=== PATIENT | female | born 1935 | race Caucasian/White ===

== ENCOUNTER 2021-09-07 11:00 | Inpatient (IN) | payer MEDICARE, BC ==
[2021-09-07] MEDS ORDERED: Lorazepam 2 MG/ML VIAL ONE ×2 (11:38→12:48)
[2021-09-07 12:22] LABS: ALT (SGPT) 9 U/L (8-55); AST (SGOT) 13 U/L (5-34); Albumin 3.5 g/dL (3.4-4.8); Alkaline Phosphatase 89 U/L (40-110); Anion Gap 15 mmol/L (10-20); BUN (Urea Nitrogen) 20 mg/dL (9.8-20.1); Bilirubin, Total 0.3 mg/dL (0.2-1.2); Calc. Creatinine Clearance 0 mL/min (70-130); Calcium 8.7 mg/dL (7.8-10.44); Carbon Dioxide 23 mmol/L (23-31); Chloride 108 mmol/L (98-107); Globulin 2.9 g/dL (2.4-3.5); Glucose 92 mg/dL (83-110); Protein, Total 6.4 g/dL (5.8-8.1); Sodium 141 mmol/L (136-145)
[2021-09-07 14:32] LABS: #Basophils 0.1 10x3/uL (0.0-0.2); #Eosinphils 0.2 10x3/uL (0.0-0.5); #Monocytes 0.5 10x3/uL (0.0-1.1); #Neutrophils 4.8 10x3/uL (1.5-8.4); %Basophils 0.7 % (0.0-2.0); %Eosinophils 2.3 % (0.0-6.0); %Lymphocytes 19.2 % (18.0-47.0); %Monocytes 7.7 % (0.0-10.0); %Neutrophils 69.8 % (40.0-75.0); Hemoglobin 10.4 g/dL (12.0-15.5); Mean Corpuscular HGB CONC 30.9 g/dL (32.0-36.0); Mean Corpuscular Hemoglobin 24.6 pg (27.0-33.0); Mean Corpuscular Volume 79.7 fl (81.6-98.3); Mean Platelet Volume 10.2 fl (7.4-10.4); Platelet Count 358 10x3/uL (150-450); RBC Distribution Width 16.4 % (11.5-14.5); Red Blood Cell (RBC) Count 4.23 10x6/uL (3.90-5.03); White Blood Cell (WBC) Count 6.9 10x3/uL (3.5-10.5)
[2021-09-07] MEDS ORDERED: Aspirin 325 MG TAB ONE (15:47)
[2021-09-07 17:37] VITALS: BMI 26.6
[2021-09-07] MEDS ORDERED: FLU VACC QS2021-22(65YR UP)/PF 240 MCG/0.7 ML SYRINGE IM ONE (18:30)
[2021-09-07 19:51] LABS: SARS-CoV-2 NAA Rapid Test Not Detected (NotDetected)
[2021-09-07] MEDS ORDERED: Ondansetron PF 4 MG/2 ML Vial IVP PRN (22:33)
[2021-09-07] MEDS ORDERED: Acetaminophen 325 MG TAB PO PRN (22:33)
[2021-09-07] MEDS ORDERED: Ondansetron ODT 4 MG TAB PO PRN (22:33)
[2021-09-07 23:32] LABS: Magnesium 2.1 mg/dL (1.6-2.6); Phosphorus 3.2 mg/dL (2.3-4.7)
[2021-09-08 05:15] LABS: #Eosinphils 0.3 10x3/uL (0.0-0.5); #Monocytes 0.7 10x3/uL (0.0-1.1); #Neutrophils 4.3 10x3/uL (1.5-8.4); %Basophils 0.6 % (0.0-2.0); %Eosinophils 4.2 % (0.0-6.0); %Lymphocytes 19.5 % (18.0-47.0); %Monocytes 10.3 % (0.0-10.0); %Neutrophils 65.1 % (40.0-75.0); Mean Corpuscular Hemoglobin 25.1 pg (27.0-33.0); Mean Corpuscular Volume 78.4 fl (81.6-98.3); Platelet Count 359 10x3/uL (150-450); RBC Distribution Width 16.2 % (11.5-14.5); Red Blood Cell (RBC) Count 4.39 10x6/uL (3.90-5.03); White Blood Cell (WBC) Count 6.6 10x3/uL (3.5-10.5)
[2021-09-08 05:33] LABS: ALT (SGPT) 8 U/L (8-55); AST (SGOT) 16 U/L (5-34); Albumin 3.5 g/dL (3.4-4.8); Alkaline Phosphatase 89 U/L (40-110); Anion Gap 12 mmol/L (10-20); BUN (Urea Nitrogen) 18 mg/dL (9.8-20.1); Bilirubin, Total 0.6 mg/dL (0.2-1.2); Calc. Creatinine Clearance 48 mL/min (70-130); Calcium 8.7 mg/dL (7.8-10.44); Carbon Dioxide 25 mmol/L (23-31); Cardiac Risk 6.4 (Less than 4.5); Chloride 107 mmol/L (98-107); Cholesterol 230 mg/dl (< 200 Desired); Globulin 2.8 g/dL (2.4-3.5); Glucose 97 mg/dL (83-110); HDL Cholesterol 36 mg/dL (>60 Neg Risk); Iron 44 ug/dL (50-170); Iron Binding Capacity, Total 323 mcg/dL (265-497); LDL Cholesterol, Calculated 165 mg/dL; Potassium 4.4 mmol/L (3.5-5.1); Protein, Total 6.3 g/dL (5.8-8.1); Sodium 140 mmol/L (136-145); Triglycerides 143 mg/dL (Less than 150)
[2021-09-08] MEDS: Enoxaparin Sodium 40 MG/0.4 ML SYRINGE SC SCH (07:25)
[2021-09-08] MEDS: Aspirin 81 mg Enteric Coated Tablet PO SCH (07:25)
[2021-09-08] MEDS: Nebivolol HCl 5 MG TAB PO SCH (07:25)
[2021-09-08 12:29] LABS: Amphetamine Not Detected (NotDetected); Barbiturates Screen Not Detected (NotDetected); Benzodiazepine Screen Not Detected (NotDetected); Cocaine Metabolite Screen Not Detected (NotDetected); Methadone Not Detected (NotDetected); Methamphetamine Not Detected (NotDetected); Opiate Screen Not Detected (NotDetected); Oxycodone Screen Not Detected (NotDetected); Phencyclidine (PCP) Not Detected (NotDetected); THC/Cannabinoid Screen Not Detected (NotDetected); Tricyclic Screen Not Detected (NotDetected)
[2021-09-08 12:58] LABS: Hemoglobin A1c 5.4 % (4.0-6.0)
[2021-09-08] MEDS ORDERED: Clopidogrel Bisulfate 75 MG TAB PO SCH (13:00)
[2021-09-09] MEDS: Nebivolol HCl 5 MG TAB PO SCH (08:25)
[2021-09-09] MEDS: Enoxaparin Sodium 40 MG/0.4 ML SYRINGE SC SCH (08:25)
[2021-09-09] MEDS: Aspirin 81 mg Enteric Coated Tablet PO SCH (08:26)
[2021-09-09] MEDS ORDERED: Clopidogrel Bisulfate 75 MG TAB PO SCH (09:00)
[2021-09-09] MEDS ORDERED: levETIRAcetam 500 MG TAB PO SCH ×2 (11:30→21:00)
[2021-09-09 15:43] VITALS: BP 170/82; TEMP 97.4
== END 2021-09-09 17:37 | disposition home health service (06) | DRG 66 ==
LOC: CSHERS 11:00 → CSHTELE 16:25 → INTOOBSV 16:25 → OBSVTOIN 09-08 20:49
PROVIDERS: ADMIT Internal Medicine; ATTEND Internal Medicine
DX: I63.9 Cerebral infarction, unspecified (principal); Z96.653 Presence of artificial knee joint, bilateral; Z20.822 Contact with and (suspected) exposure to COVID-19; D64.9 Anemia, unspecified; N18.9 Chronic kidney disease, unspecified; I12.9 Hypertensive chronic kidney disease with stage 1 through stage 4 chronic kidney disease, or unspecified chronic kidney disease; F41.9 Anxiety disorder, unspecified; G25.5 Other chorea; G25.3 Myoclonus; R56.9 Unspecified convulsions; Z90.710 Acquired absence of both cervix and uterus; Z88.5 Allergy status to narcotic agent; Z86.73 Personal history of transient ischemic attack (TIA), and cerebral infarction without residual deficits; Z88.8 Allergy status to other drugs, medicaments and biological substances; Z79.82 Long term (current) use of aspirin; Z79.899 Other long term (current) drug therapy
CPT/HCPCS: 36415; 70450; 70551; 80053; 80061; 80306; 83036; 83540; 83550; 83735; 84100; 84443; 85025; 85652; 93005; 93010; 93306; 93880; 96372; G0378; J1650; J2060; U0002

== ENCOUNTER 2021-09-21 11:36 | Emergency (ER) | payer MEDICARE, BC ==
[2021-09-21] MEDS ORDERED: Acetaminophen 500 MG TAB ONE (13:39)
[2021-09-21 17:04] LABS: #Eosinphils 0.2 10x3/uL (0.0-0.5); #Monocytes 0.5 10x3/uL (0.0-1.1); #Neutrophils 5.4 10x3/uL (1.5-8.4); %Basophils 0.4 % (0.0-2.0); %Eosinophils 2.2 % (0.0-6.0); %Lymphocytes 18.4 % (18.0-47.0); %Neutrophils 71.6 % (40.0-75.0); Mean Corpuscular Hemoglobin 25.2 pg (27.0-33.0); Mean Corpuscular Volume 78.7 fl (81.6-98.3); Mean Platelet Volume 10.6 fl (7.4-10.4); Platelet Count 394 10x3/uL (150-450); RBC Distribution Width 16.7 % (11.5-14.5); Red Blood Cell (RBC) Count 4.37 10x6/uL (3.90-5.03); White Blood Cell (WBC) Count 7.6 10x3/uL (3.5-10.5)
[2021-09-21 17:14] LABS: ALT (SGPT) 6 U/L (8-55); AST (SGOT) 17 U/L (5-34); Albumin 3.7 g/dL (3.4-4.8); Alkaline Phosphatase 93 U/L (40-110); Anion Gap 13 mmol/L (10-20); BUN (Urea Nitrogen) 21 mg/dL (9.8-20.1); Bilirubin, Total 0.3 mg/dL (0.2-1.2); Calc. Creatinine Clearance 0 mL/min (70-130); Calcium 8.8 mg/dL (7.8-10.44); Carbon Dioxide 26 mmol/L (23-31); Chloride 104 mmol/L (98-107); Globulin 2.9 g/dL (2.4-3.5); Glucose 94 mg/dL (83-110); Potassium 4.3 mmol/L (3.5-5.1); Protein, Total 6.6 g/dL (5.8-8.1); Sodium 139 mmol/L (136-145)
== END 2021-09-21 22:41 | disposition home or self-care (01) ==
LOC: CSHERS 11:36
DX: S51.811A Laceration without foreign body of right forearm, initial encounter (principal); S20.211A Contusion of right front wall of thorax, initial encounter; E66.9 Obesity, unspecified; Z86.73 Personal history of transient ischemic attack (TIA), and cerebral infarction without residual deficits; Z79.899 Other long term (current) drug therapy; W18.30XA Fall on same level, unspecified, initial encounter
CPT/HCPCS: 36415; 72170; 80053; 85025

== ENCOUNTER 2022-04-30 03:29 | Observation (INO) | payer MEDICARE, BC ==
[2022-04-30 04:19] LABS: ALT (SGPT) 6 U/L (8-55); AST (SGOT) 11 U/L (5-34); Albumin 3.8 g/dL (3.4-4.8); Alkaline Phosphatase 73 U/L (40-110); Anion Gap 14 mmol/L (10-20); BUN (Urea Nitrogen) 15 mg/dL (9.8-20.1); Bilirubin, Total 0.4 mg/dL (0.2-1.2); Calc. Creatinine Clearance 0 mL/min (70-130); Calcium 9.5 mg/dL (7.8-10.44); Carbon Dioxide 22 mmol/L (23-31); Chloride 107 mmol/L (98-107); Estimated GFR 60; Globulin 2.4 g/dL (2.4-3.5); Glucose 163 mg/dL (83-110); Lipase 21 U/L (8-78); Potassium 3.6 mmol/L (3.5-5.1); Protein, Total 6.2 g/dL (5.8-8.1); Sodium 139 mmol/L (136-145)
[2022-04-30] MEDS ORDERED: Ondansetron PF 4 MG/2 ML Vial ONE (04:23)
[2022-04-30 04:33] LABS: #Basophils 0.1 10x3/uL (0.0-0.2); #Eosinphils 0.4 10x3/uL (0.0-0.5); #Monocytes 0.5 10x3/uL (0.0-1.1); #Neutrophils 4.5 10x3/uL (1.5-8.4); %Basophils 0.8 % (0.0-2.0); %Eosinophils 5.6 % (0.0-6.0); %Lymphocytes 26.3 % (18.0-47.0); %Monocytes 6.7 % (0.0-10.0); %Neutrophils 60.3 % (40.0-75.0); Hemoglobin 11.1 g/dL (12.0-15.5); Mean Corpuscular HGB CONC 32.2 g/dL (32.0-36.0); Mean Corpuscular Hemoglobin 24.5 pg (27.0-33.0); Mean Corpuscular Volume 76.2 fl (81.6-98.3); Mean Platelet Volume 10.4 fl (7.4-10.4); Platelet Count 365 10x3/uL (150-450); RBC Distribution Width 16.4 % (11.5-14.5); Red Blood Cell (RBC) Count 4.53 10x6/uL (3.90-5.03); White Blood Cell (WBC) Count 7.5 10x3/uL (3.5-10.5)
[2022-04-30 04:39] LABS: PTT 25.9 sec (22.0-33.0); Prothrombin Time 10.4 sec (9.5-12.1)
[2022-04-30 04:41] LABS: Bilirubin Neg (Negative); Blood, Urine Negative (Negative); Clarity Slightly Cloudy (Clear); Glucose, Urine (Dipstick) Normal (Negative); Ketone, Urine Negative (Negative); Leukocyte Negative (Negative); Nitrite Negative (Negative); Protein, Urine (Dipstick) 15 mg/dl (Neg-Trace); Specific Gravity, Urine 1.025 (1.002-1.036); Urobilinogen Normal mg/dL (Less than 2)
[2022-04-30 05:13] LABS: SARS-CoV-2 NAA Rapid Test Not Detected (NotDetected)
[2022-04-30] MEDS ORDERED: Ondansetron PF 4 MG/2 ML Vial IVP PRN (06:03)
[2022-04-30] MEDS ORDERED: Acetaminophen 325 MG TAB PO PRN (06:03)
[2022-04-30] MEDS ORDERED: Senokot S 8.6-50 MG TAB PO PRN (06:03)
[2022-04-30] MEDS ORDERED: Calcium Carbonate 500 MG ChewTAB PO PRN (06:03)
[2022-04-30] MEDS ORDERED: Lactated Ringer's 500 ML IV SCH (06:15)
[2022-04-30] MEDS ORDERED: Aspirin 81 mg Enteric Coated Tablet ONE (07:41)
[2022-04-30] MEDS ORDERED: Enoxaparin Sodium 40 MG/0.4 ML SYRINGE ONE (07:41)
[2022-04-30] MEDS ORDERED: Aspirin 81 mg Enteric Coated Tablet PO SCH (09:00)
[2022-04-30] MEDS ORDERED: Nebivolol HCl 5 MG TAB PO SCH (09:00)
[2022-04-30] MEDS: Enoxaparin Sodium 40 MG/0.4 ML SYRINGE SC SCH (09:04)
[2022-04-30] MEDS ORDERED: Acetaminophen 325 MG TAB ONE (12:46)
[2022-04-30 17:06] VITALS: BMI 25.0
[2022-05-01 08:14] VITALS: BP 173/80; TEMP 97.7
[2022-05-01] MEDS ORDERED: Aspirin 81 mg Enteric Coated Tablet PO SCH (09:00)
[2022-05-01] MEDS ORDERED: Potassium Chloride 10 MEQ TAB PO SCH (09:00)
[2022-05-01] MEDS ORDERED: Nebivolol HCl 5 MG TAB PO SCH (09:00)
[2022-05-01] MEDS ORDERED: Loratadine 10 MG TAB PO SCH (09:00)
[2022-05-01] MEDS ORDERED: Clopidogrel Bisulfate 75 MG TAB PO SCH (09:00)
[2022-05-01] MEDS: Enoxaparin Sodium 40 MG/0.4 ML SYRINGE SC SCH ×2 (09:28→09:35)
[2022-05-02] MEDS ORDERED: Furosemide 20 MG TAB PO SCH (09:00)
== END 2022-05-01 10:30 | disposition home health service (06) ==
LOC: CSHERS 03:29 → INTOOBSV 05:51 → CSHERHOLD 05:51 → CSHTELE 07:00
PROVIDERS: ADMIT Student in an Organized Health Care Education/Training Program; ATTEND Family Medicine
DX: R55 Syncope and collapse (principal); I69.354 Hemiplegia and hemiparesis following cerebral infarction affecting left non-dominant side; I13.0 Hypertensive heart and chronic kidney disease with heart failure and stage 1 through stage 4 chronic kidney disease, or unspecified chronic kidney disease; I50.32 Chronic diastolic (congestive) heart failure; E86.0 Dehydration; Z20.822 Contact with and (suspected) exposure to COVID-19; Z66 Do not resuscitate; D50.9 Iron deficiency anemia, unspecified; N18.2 Chronic kidney disease, stage 2 (mild); M19.90 Unspecified osteoarthritis, unspecified site; Z96.653 Presence of artificial knee joint, bilateral; Z60.2 Problems related to living alone; E66.9 Obesity, unspecified; Z88.6 Allergy status to analgesic agent; Z88.8 Allergy status to other drugs, medicaments and biological substances; Z79.82 Long term (current) use of aspirin; Z79.899 Other long term (current) drug therapy; Z79.02 Long term (current) use of antithrombotics/antiplatelets; Z90.710 Acquired absence of both cervix and uterus; Z82.49 Family history of ischemic heart disease and other diseases of the circulatory system; Z90.89 Acquired absence of other organs
CPT/HCPCS: 51701; 71045; 80053; 81003; 83605; 83690; 83880; 84484 ×2; 85025; 85610; 85730; 93005; 93880; 96374; 97530; 99285; U0002; 36415; J1650; J2405; J7120

== ENCOUNTER 2022-05-12 01:07 | Emergency (ER) | payer MEDICARE, BC ==
[2022-05-12] MEDS ORDERED: Ondansetron ODT 4 MG TAB ONE (02:01)
== END 2022-05-12 02:15 | disposition home or self-care (01) ==
LOC: CSHERS 01:07
DX: R51.9 Headache, unspecified (principal); I10 Essential (primary) hypertension; E66.9 Obesity, unspecified; Z86.73 Personal history of transient ischemic attack (TIA), and cerebral infarction without residual deficits; Z79.899 Other long term (current) drug therapy
CPT/HCPCS: 70450; Q0162

== ENCOUNTER 2022-08-30 11:54 | Inpatient (IN) | payer MEDICARE, BC ==
[2022-08-30 12:56] LABS: #Eosinphils 0.2 10x3/uL (0.0-0.5); #Monocytes 0.6 10x3/uL (0.0-1.1); #Neutrophils 4.8 10x3/uL (1.5-8.4); %Basophils 0.5 % (0.0-2.0); %Eosinophils 2.4 % (0.0-6.0); %Lymphocytes 23.3 % (18.0-47.0); %Monocytes 8.7 % (0.0-10.0); %Neutrophils 64.8 % (40.0-75.0); Mean Corpuscular HGB CONC 31.8 g/dL (32.0-36.0); Mean Corpuscular Hemoglobin 23.3 pg (27.0-33.0); Mean Corpuscular Volume 73.3 fl (81.6-98.3); Mean Platelet Volume 10.4 fl (7.4-10.4); Platelet Count 413 10x3/uL (150-450); RBC Distribution Width 17.6 % (11.5-14.5); Red Blood Cell (RBC) Count 4.72 10x6/uL (3.90-5.03); White Blood Cell (WBC) Count 7.4 10x3/uL (3.5-10.5)
[2022-08-30 13:05] LABS: ALT (SGPT) 8 U/L (8-55); AST (SGOT) 11 U/L (5-34); Albumin 3.9 g/dL (3.4-4.8); Alkaline Phosphatase 76 U/L (40-110); Anion Gap 14 mmol/L (10-20); BUN (Urea Nitrogen) 23 mg/dL (9.8-20.1); Bilirubin, Total 0.6 mg/dL (0.2-1.2); Calc. Creatinine Clearance 0 mL/min (70-130); Calcium 9.1 mg/dL (7.8-10.44); Carbon Dioxide 23 mmol/L (23-31); Chloride 106 mmol/L (98-107); Estimated GFR 56; Globulin 2.4 g/dL (2.4-3.5); Glucose 115 mg/dL (83-110); Potassium 4.5 mmol/L (3.5-5.1); Protein, Total 6.3 g/dL (5.8-8.1); Sodium 138 mmol/L (136-145)
[2022-08-30 15:22] LABS: Bilirubin Neg (Negative); Blood, Urine Negative (Negative); Clarity Clear (Clear); Glucose, Urine (Dipstick) Normal (Negative); Ketone, Urine Negative (Negative); Leukocyte Negative (Negative); Nitrite Negative (Negative); Protein, Urine (Dipstick) Negative (Neg-Trace); Specific Gravity, Urine 1.025 (1.005-1.030); Urobilinogen Normal mg/dL (Less than 2)
[2022-08-30 17:53] LABS: SARS-CoV-2 NAA Rapid Test Not Detected (NotDetected)
[2022-08-30] MEDS ORDERED: Ondansetron PF 4 MG/2 ML Vial ONE (18:45)
[2022-08-30 18:46] LABS: Troponin I Less than 0.010 ng/mL (< 0.028)
[2022-08-30 20:14] LABS: Hemoglobin A1c 5.6 % (4.0-6.0)
[2022-08-30 21:47] LABS: Troponin I Less than 0.010 ng/mL (< 0.028)
[2022-08-31] MEDS ORDERED: Atorvastatin Calcium 40 MG TAB ONE ×2 (00:35→21:55)
[2022-08-31] MEDS: Sodium Chloride 0.9% 1,000 ML IV SCH ×2 (00:54→22:00)
[2022-08-31] MEDS: Atorvastatin Calcium 40 MG TAB PO SCH ×2 (00:55→22:01)
[2022-08-31] MEDS ORDERED: Haloperidol Lactate 5 MG/ML VIAL ONE (02:03)
[2022-08-31 04:41] LABS: Cardiac Risk 6.2 (Less than 4.5)
[2022-08-31] MEDS ORDERED: Clopidogrel Bisulfate 75 MG TAB ONE (09:44)
[2022-08-31] MEDS: Clopidogrel Bisulfate 75 MG TAB PO SCH (09:44)
[2022-09-01 00:50] VITALS: BMI 24.9
[2022-09-01] MEDS ORDERED: FLU VACC QS2022-23(65YR UP)/PF 240 MCG/0.7 ML SYRINGE IM ONE (09:00)
[2022-09-01] MEDS ORDERED: Acetaminophen 325 MG TAB PO PRN (10:34)
[2022-09-01] MEDS ORDERED: Ondansetron PF 4 MG/2 ML Vial IVP PRN (10:34)
[2022-09-01] MEDS ORDERED: Aspirin 81 mg Enteric Coated Tablet PO SCH (11:00)
[2022-09-01] MEDS: HYDROcodone/Acetaminophen 5/325 mg Tablet PO PRN ×2 (11:45→18:02)
[2022-09-01] MEDS ORDERED: Nebivolol HCl 5 MG TAB PO SCH (12:00)
[2022-09-01] MEDS ORDERED: Lidocaine 5% Patch TD SCH (12:00)
[2022-09-01] MEDS: Clopidogrel Bisulfate 75 MG TAB PO SCH (13:03)
[2022-09-01] MEDS: Sodium Chloride 0.9% 1,000 ML IV SCH (14:00)
[2022-09-01] MEDS ORDERED: LIDOCAINE Patch Removal TOP SCH (21:00)
[2022-09-01] MEDS: Atorvastatin Calcium 40 MG TAB PO SCH (21:22)
[2022-09-01] MEDS: levETIRAcetam 500 MG TAB PO SCH (21:22)
[2022-09-02] MEDS ORDERED: Furosemide 20 MG TAB PO SCH (09:00)
[2022-09-02] MEDS ORDERED: ESOMEPRAZOLE MAGNESIUM 20 MG PO SCH (09:00)
[2022-09-02] MEDS ORDERED: Aspirin 81 mg Enteric Coated Tablet PO SCH (09:00)
[2022-09-02] MEDS ORDERED: Nebivolol HCl 5 MG TAB PO SCH (09:00)
[2022-09-02] MEDS ORDERED: Loratadine 10 MG TAB PO SCH (09:00)
[2022-09-02] MEDS ORDERED: Potassium Chloride 10 MEQ TAB PO SCH (09:00)
[2022-09-02] MEDS ORDERED: Lidocaine 5% Patch TD SCH ×2 (09:00)
[2022-09-02] MEDS ORDERED: Amlodipine 5 MG TAB PO SCH (09:00)
[2022-09-02] MEDS ORDERED: Cyclobenzaprine 10 MG TAB PO PRN (09:01)
[2022-09-02] MEDS ORDERED: Ketorolac Tromethamine 30 MG/ML VIAL IVP SCH (09:15)
[2022-09-02] MEDS ORDERED: Cyclobenzaprine 10 MG TAB PO SCH (09:15)
[2022-09-02] MEDS: levETIRAcetam 500 MG TAB PO SCH (10:10)
[2022-09-02] MEDS: Clopidogrel Bisulfate 75 MG TAB PO SCH (10:10)
[2022-09-02 15:26] VITALS: BP 144/67; TEMP 98.1
== END 2022-09-02 18:16 | DRG 65 ==
LOC: CSHERS 11:54 → INTOOBSV 17:50 → CSHERHOLD 17:50 → CSHTELE 08-31 23:46 → OBSVTOIN 09-01 08:19
PROVIDERS: ADMIT Family Medicine; ATTEND Family Medicine
DX: I63.81 Other cerebral infarction due to occlusion or stenosis of small artery (principal); I13.0 Hypertensive heart and chronic kidney disease with heart failure and stage 1 through stage 4 chronic kidney disease, or unspecified chronic kidney disease; I69.352 Hemiplegia and hemiparesis following cerebral infarction affecting left dominant side; I50.32 Chronic diastolic (congestive) heart failure; Z96.653 Presence of artificial knee joint, bilateral; G40.909 Epilepsy, unspecified, not intractable, without status epilepticus; N18.2 Chronic kidney disease, stage 2 (mild); D50.9 Iron deficiency anemia, unspecified; M54.2 Cervicalgia; Z20.822 Contact with and (suspected) exposure to COVID-19; Z90.89 Acquired absence of other organs; Z98.890 Other specified postprocedural states; Z90.710 Acquired absence of both cervix and uterus; Z88.8 Allergy status to other drugs, medicaments and biological substances; Z88.5 Allergy status to narcotic agent; Z88.6 Allergy status to analgesic agent; Z79.899 Other long term (current) drug therapy; Z82.49 Family history of ischemic heart disease and other diseases of the circulatory system; Z79.82 Long term (current) use of aspirin
CPT/HCPCS: 36415; 36416; 51701; 70450; 70551; 71045; 74230; 80053; 80061; 81003; 83036; 84443; 84484; 85025; 93005; 93306; 96374; G0378; J1630; J1885; J2405; J7050; U0002

== ENCOUNTER 2022-10-16 01:44 | Emergency (ER) | payer MEDICARE, BC ==
[2022-10-16 02:12] LABS: #Basophils 0.1 10x3/uL (0.0-0.2); #Eosinphils 0.4 10x3/uL (0.0-0.5); #Monocytes 0.7 10x3/uL (0.0-1.1); #Neutrophils 6.4 10x3/uL (1.5-8.4); %Basophils 0.8 % (0.0-2.0); %Eosinophils 3.9 % (0.0-6.0); %Lymphocytes 15.6 % (18.0-47.0); %Monocytes 7.3 % (0.0-10.0); %Neutrophils 72.1 % (40.0-75.0); Hemoglobin 10.5 g/dL (12.0-15.5); Mean Corpuscular HGB CONC 31.5 g/dL (32.0-36.0); Mean Platelet Volume 10.1 fl (7.4-10.4); Platelet Count 445 10x3/uL (150-450); RBC Distribution Width 18.1 % (11.5-14.5); Red Blood Cell (RBC) Count 4.56 10x6/uL (3.90-5.03); White Blood Cell (WBC) Count 8.9 10x3/uL (3.5-10.5)
[2022-10-16 02:40] LABS: ALT (SGPT) Less than 6 U/L (8-55); AST (SGOT) 12 U/L (5-34); Albumin 3.9 g/dL (3.4-4.8); Alkaline Phosphatase 73 U/L (40-110); Anion Gap 16 mmol/L (10-20); BUN (Urea Nitrogen) 26 mg/dL (9.8-20.1); Bilirubin, Total 0.5 mg/dL (0.2-1.2); Calc. Creatinine Clearance 0 mL/min (70-130); Carbon Dioxide 23 mmol/L (23-31); Chloride 105 mmol/L (98-107); Estimated GFR 50; Globulin 2.2 g/dL (2.4-3.5); Glucose 120 mg/dL (83-110); Protein, Total 6.1 g/dL (5.8-8.1); Sodium 140 mmol/L (136-145)
[2022-10-16 02:59] LABS: SARS-CoV-2 NAA Rapid Test Not Detected (NotDetected)
[2022-10-16 05:06] LABS: Troponin I Less than 0.010 ng/mL (< 0.028)
== END 2022-10-16 06:24 | disposition home or self-care (01) ==
LOC: CSHERS 01:44
DX: R55 Syncope and collapse (principal); E66.9 Obesity, unspecified; I10 Essential (primary) hypertension; Z20.822 Contact with and (suspected) exposure to COVID-19
CPT/HCPCS: 80053; 83735; 84484 ×2; 85025; 93005; 99284; U0002